=== PATIENT | male | born 1985 | race Caucasian/White ===

== ENCOUNTER 2022-07-11 22:31 | Emergency (ER) | payer MEDICAID ==
[2022-07-11] MEDS ORDERED: Ibuprofen 600 MG Tab PO ONE (23:13)
[2022-07-11] MEDS ORDERED: Amoxicillin/Clavulanate K 875-125 MG Tab PO ONE (23:14)
[2022-07-11] MEDS ORDERED: Lidocaine 1% with EPINEPHrine 1:100,000 10 ML MDV INJECT ONE (23:17)
[2022-07-11] MEDS ORDERED: Lidocaine 1% with EPINEPHrine 1:100,000 20 ML MDV INJECT ONE (23:30)
[2022-07-11] MEDS ORDERED: Lidocaine 1% 10 ML MDV ONE (23:36)
[2022-07-11] MEDS ORDERED: Lidocaine 2% with EPINEPHrine 1:200,000 20 ML SDV ONE (23:38)
[2022-07-11] MEDS ORDERED: Lidocaine 2% with EPINEPHrine 1:200,000 20 ML SDV INJECT ONE (23:40)
== END 2022-07-12 04:01 | disposition home or self-care (01) ==
LOC: JD.ED 22:31
DX: S01.511A Laceration without foreign body of lip, initial encounter (principal); I10 Essential (primary) hypertension; E66.9 Obesity, unspecified; Z68.26 Body mass index [BMI] 26.0-26.9, adult; W22.09XA Striking against other stationary object, initial encounter
CPT/HCPCS: 12011; 99283; A9270; J3490